=== PATIENT | female | born 2000 | race Caucasian/White ===

== ENCOUNTER → 2019-11-09 | Outpatient (REF) | payer SELFPAY ==
[2019-11-10 17:57] LABS: CHLAMYDIA DNA AMPLIFICATION NEGATIVE (NEGATIVE); GC DNA AMPLIFICATION NEGATIVE (NEGATIVE)
== END ==
LOC: M LAB REF 15:07
PROVIDERS: ATTEND Physician Assistant
DX: N76.0 Acute vaginitis (principal)